=== PATIENT | male | born 1950 | race Caucasian/White ===

== ENCOUNTER 2024-04-17 14:41 | Inpatient (IN) | payer OTHER ==
[~2024-04-17] VITALS: Ht 182.9 cm; Wt 111.5 kg
[2024-04-17 16:43] LABS: Basophils # (auto) 0 10 ^3/uL (0-0.2); Basophils % (auto) 0.5 % (0.0-2.0); Eosinophils # (auto) 0 10 ^3/uL (0-0.8); Eosinophils % (auto) 0.5 % (0.0-7.0); Hematocrit 35.7 % (41.0-53.0); Hemoglobin 11.5 g/dL (13.5-17.5); Lymphocytes # (auto) 1.2 10 ^3/uL (0.4-5.4); Lymphocytes % (auto) 13.4 % (10.0-50.0); Mean Corpuscular Hemoglobin 27.4 pg (28.0-32.0); Mean Corpuscular Hgb Conc. 32.3 g/dL (32.0-36.0); Mean Corpuscular Volume 84.7 fL (80.0-100.0); Monocytes # (auto) 0.7 10 ^3/uL (0-1.3); Monocytes % (auto) 8.1 % (0.0-12.0); Neutrophils # (auto) 6.8 10 ^3/uL (1.6-8.6); Neutrophils % (auto) 77.5 % (37.0-80.0); Nucleated Red Blood Cells % 0.1 %; Red Blood Cells 4.21 10^6/uL (4.5-5.90); Red Cell Distribution Width 19.3 % (11.8-14.3); White Blood Cell 8.7 10^3/uL (4.4-10.8)
[2024-04-17 16:45] LABS: Base Excess 12.3 mmol/L (-2.0-2.0)
[2024-04-17 17:27] LABS: Alanine Aminotransferase 21 U/L (7-40); Alkaline Phosphatase 68 U/L (46-116)
[2024-04-17 17:28] LABS: Albumin 4.2 g/dL (3.2-4.8); Anion Gap 12 (5-15); Aspartate Aminotransferase 30 U/L (13-40); BUN/Creatinine Ratio 23.8 (10.0-20.0); Bilirubin, Total 0.9 mg/dL (0.2-1.0); Blood Urea Nitrogen 29 mg/dL (9-23); Calcium 9.9 mg/dL (8.5-10.1); Carbon Dioxide 30 mmol/L (20-30); Chloride 95 mmol/L (98-107); Glucose 115 mg/dL (74-106); Potassium 4.5 mmol/L (3.5-5.1); Sodium 137 mmol/L (136-145); Total Protein 6.8 g/dL (5.7-8.2)
[2024-04-17] MEDS: FUROSEMIDE 40 MG/4 ML VIAL IV ONE (17:34)
[2024-04-17 17:51] LABS: COVID19 ANTIGEN SOFIA FIA NEGATIVE (NEGATIVE)
[2024-04-17] MEDS ORDERED: MORPHINE SULFATE INJ 2 MG/ml SYRG IV PRN (18:45)
[2024-04-17] MEDS ORDERED: NITROGLYCERIN 0.4 MG SL TAB SL PRN (18:45)
[2024-04-17 18:58] VITALS: BP 127/72; PULSE 85; O2SAT 95
[2024-04-17] MEDS: cefTRIAXone 1GM/50ML D5W 50 ML IV ONE (19:08)
[2024-04-17 19:11] LABS: Base Excess 9.1 mmol/L (-2.0-2.0)
[2024-04-17 19:30] VITALS: PULSE 77; RESP 20; O2SAT 92
[2024-04-17 19:37] VITALS: BP 116/73; PULSE 83; RESP 17; TEMP 98.7; O2SAT 97
[2024-04-17] MEDS: ALBUTEROL SULF 2.5 MG/0.5ML(0.5%) NEB SOLN NEB ONE (19:39)
[2024-04-17] MEDS: IPRATROPIUM BROM 0.5 MG/2.5ML INH SOL NEB ONE (19:39)
[2024-04-17] MEDS: AZITHROMYCIN 500MG/ 250ML 250 ML IV ONE (19:45)
[2024-04-17 20:08] VITALS: BP 127/66; PULSE 84; O2SAT 96
[2024-04-17 21:06] LABS: INR 1.34 (0.9-1.15); Prothrombin Time 13.9 sec (9.3-11.8)
[2024-04-17] MEDS: ATORVASTATIN 20 MG TAB PO SCH (22:08)
[2024-04-17] MEDS: FUROSEMIDE 20 MG/2 ML VIAL IV SCH (22:08)
[2024-04-17] MEDS: ENOXAPARIN SOD 100 MG/1 ML SYRINGE SC SCH (22:09)
[2024-04-17 22:26] VITALS: BP 103/61; PULSE 111; O2SAT 99
[2024-04-17] MEDS: IPRATROPIUM BROM 0.5 MG/2.5ML INH SOL NEB SCH (22:26)
[2024-04-17] MEDS: ALBUTEROL SULF 2.5 MG/0.5ML(0.5%) NEB SOLN NEB SCH (22:26)
[2024-04-17 22:44] LABS: Urine Bacteria None Seen /hpf (None Seen)
[2024-04-17 23:00] LABS: Urine Blood Negative /uL (Negative); Urine Clarity Clear (Clear); Urine Color Yellow (Yellow); Urine Hyaline Cast MANY /lpf (0 - 2); Urine Mucus FEW (None Seen); Urine Protein, UAD Negative (Negative); Urine Specific Gravity 1.015 (1.001-1.035); Urine Urobilinogen Normal (Negative); Urine WBC 4 /hpf (0 - 3)
[2024-04-17 23:09] VITALS: BP 130/68; PULSE 82; O2SAT 90
[2024-04-18] VITALS (16 sets, daily range): BP systolic 108–119; BP diastolic 49–68; PULSE 73–100; RESP 14–20; O2SAT 89–96
[2024-04-18 05:40] LABS: Basophils # (auto) 0 10 ^3/uL (0-0.2); Basophils % (auto) 0.5 % (0.0-2.0); Eosinophils # (auto) 0.2 10 ^3/uL (0-0.8); Hematocrit 34.7 % (41.0-53.0); Hemoglobin 11.1 g/dL (13.5-17.5); Lymphocytes # (auto) 1.8 10 ^3/uL (0.4-5.4); Lymphocytes % (auto) 24.3 % (10.0-50.0); Mean Corpuscular Hemoglobin 27.3 pg (28.0-32.0); Mean Corpuscular Volume 85.2 fL (80.0-100.0); Monocytes # (auto) 0.8 10 ^3/uL (0-1.3); Monocytes % (auto) 10.1 % (0.0-12.0); Neutrophils # (auto) 4.7 10 ^3/uL (1.6-8.6); Neutrophils % (auto) 63.1 % (37.0-80.0); Nucleated Red Blood Cells % 0.1 %; Red Blood Cells 4.07 10^6/uL (4.5-5.90); Red Cell Distribution Width 19.3 % (11.8-14.3); White Blood Cell 7.5 10^3/uL (4.4-10.8)
[2024-04-18 05:50] LABS: Alanine Aminotransferase 15 U/L (7-40); Albumin 3.9 g/dL (3.2-4.8); Alkaline Phosphatase 59 U/L (46-116); Anion Gap 9 (5-15); Aspartate Aminotransferase 22 U/L (13-40); BUN/Creatinine Ratio 20.2 (10.0-20.0); Blood Urea Nitrogen 24 mg/dL (9-23); Carbon Dioxide 35 mmol/L (20-30); Chloride 94 mmol/L (98-107); Glucose 99 mg/dL (74-106); Potassium 4.3 mmol/L (3.5-5.1); Sodium 138 mmol/L (136-145)
[2024-04-18 05:51] LABS: Bilirubin, Total 0.9 mg/dL (0.2-1.0); Total Protein 6.7 g/dL (5.7-8.2)
[2024-04-18] MEDS: cefTRIAXone 1GM/50ML D5W 50 ML IV SCH (09:21)
[2024-04-18 09:37] LABS: Base Excess 8.7 mmol/L (-2.0-2.0)
[2024-04-18] MEDS: AZITHROMYCIN 500MG/ 250ML 250 ML IV SCH (10:20)
[2024-04-18] MEDS: FUROSEMIDE INJECTION 100 MG in D5W 5% 100 ML IV SCH (10:21)
[2024-04-18] MEDS: ASPirin 81 mg TAB PO SCH (10:21)
[2024-04-18] MEDS: levoFLOXacin 750MG 150 ML IV ONE (13:15)
[2024-04-18 13:51] LABS: Amphetamine Screen, Urine Neg (NEGATIVE); Barbiturate Scree,Urine Neg (NEGATIVE); Benzodiazephine Screen, Urine Neg (NEGATIVE); Cannabinoid Screen, Urine Neg (NEGATIVE); Cocaine Screen, Urine Neg (NEGATIVE); Opiate Scree,Urine Neg (NEGATIVE); Phencyclidine Screen, Urine Neg (NEGATIVE)
[2024-04-18] MEDS ORDERED: FUROSEMIDE 20 MG/2 ML VIAL IV ONE (15:00)
[2024-04-18] MEDS ORDERED: DEXTROSE (50%) 50ML SYRG IV PRN (18:15)
[2024-04-18] MEDS: FUROSEMIDE 40 MG/4 ML VIAL IV ONE (19:44)
[2024-04-18] MEDS: ACCU-CHEK COMFORT CURVE STRIP VI SCH (21:35)
[2024-04-18 21:40] LABS: Rapid Influenza A Negative (Negative); Rapid Influenza B Negative (Negative)
[2024-04-18] MEDS: InsuLIN REG 1unit/0.01ml Soln (100units/ml) SC SCH (21:44)
[2024-04-19] VITALS (11 sets, daily range): BP systolic 124–130; BP diastolic 63–65; PULSE 88–106; RESP 13–24; O2SAT 86–96
[2024-04-19 03:50] LABS: Basophils # (auto) 0 10 ^3/uL (0-0.2); Basophils % (auto) 0.5 % (0.0-2.0); Eosinophils # (auto) 0.2 10 ^3/uL (0-0.8); Hemoglobin 11.2 g/dL (13.5-17.5); Lymphocytes # (auto) 1.4 10 ^3/uL (0.4-5.4); Lymphocytes % (auto) 18.8 % (10.0-50.0); Mean Corpuscular Hemoglobin 27.1 pg (28.0-32.0); Mean Corpuscular Hgb Conc. 31.9 g/dL (32.0-36.0); Monocytes # (auto) 0.8 10 ^3/uL (0-1.3); Monocytes % (auto) 9.9 % (0.0-12.0); Neutrophils # (auto) 5.3 10 ^3/uL (1.6-8.6); Neutrophils % (auto) 68.8 % (37.0-80.0); Nucleated Red Blood Cells % 0.1 %; Red Blood Cells 4.12 10^6/uL (4.5-5.90); Red Cell Distribution Width 19.4 % (11.8-14.3); White Blood Cell 7.6 10^3/uL (4.4-10.8)
[2024-04-19 04:11] LABS: Alanine Aminotransferase 13 U/L (7-40); Alkaline Phosphatase 58 U/L (46-116); Anion Gap 5 (5-15); Aspartate Aminotransferase 20 U/L (13-40); BUN/Creatinine Ratio 17.6 (10.0-20.0); Blood Urea Nitrogen 19 mg/dL (9-23); Calcium 9.8 mg/dL (8.7-10.4); Carbon Dioxide 37 mmol/L (20-30); Chloride 97 mmol/L (98-107); Glucose 154 mg/dL (74-106); Magnesium 2.2 mg/dL (1.6-2.6); Potassium 3.7 mmol/L (3.5-5.1); Sodium 139 mmol/L (136-145)
[2024-04-19 04:12] LABS: Albumin 3.8 g/dL (3.2-4.8)
[2024-04-19 04:13] LABS: Bilirubin, Total 0.8 mg/dL (0.2-1.0); Total Protein 6.7 g/dL (5.7-8.2)
[2024-04-19] MEDS: FUROSEMIDE 40 MG/4 ML VIAL IV SCH (06:28)
[2024-04-19 09:30] LABS: Base Excess 8.1 mmol/L (-2.0-2.0)
[2024-04-19] MEDS ORDERED: FUROSEMIDE 20 MG/2 ML VIAL IV SCH (10:00)
[2024-04-19] MEDS: levoFLOXacin 750MG 150 ML IV SCH (10:35)
[2024-04-19] MEDS: ENOXAPARIN SOD 120 MG/0.8 ML SYRINGE SC SCH (21:58)
[2024-04-20] VITALS (22 sets, daily range): BP systolic 96–159; BP diastolic 54–91; PULSE 87–108; RESP 13–30; TEMP 98.1–99.4; O2SAT 79–96
[2024-04-20 04:33] LABS: Basophils # (auto) 0 10 ^3/uL (0-0.2); Basophils % (auto) 0.4 % (0.0-2.0); Eosinophils # (auto) 0 10 ^3/uL (0-0.8); Eosinophils % (auto) 0.3 % (0.0-7.0); Hematocrit 35.4 % (41.0-53.0); Hemoglobin 11.5 g/dL (13.5-17.5); Lymphocytes # (auto) 0.9 10 ^3/uL (0.4-5.4); Lymphocytes % (auto) 8.6 % (10.0-50.0); Mean Corpuscular Hemoglobin 27.7 pg (28.0-32.0); Mean Corpuscular Hgb Conc. 32.6 g/dL (32.0-36.0); Mean Corpuscular Volume 85.2 fL (80.0-100.0); Monocytes # (auto) 0.9 10 ^3/uL (0-1.3); Monocytes % (auto) 8.8 % (0.0-12.0); Neutrophils # (auto) 8.3 10 ^3/uL (1.6-8.6); Neutrophils % (auto) 81.9 % (37.0-80.0); Red Blood Cells 4.15 10^6/uL (4.5-5.90); Red Cell Distribution Width 19.2 % (11.8-14.3); White Blood Cell 10.2 10^3/uL (4.4-10.8)
[2024-04-20 04:47] LABS: Alanine Aminotransferase 15 U/L (7-40); Albumin 4.2 g/dL (3.2-4.8); Alkaline Phosphatase 67 U/L (46-116); Anion Gap 11 (5-15); Aspartate Aminotransferase 25 U/L (13-40); BUN/Creatinine Ratio 15.4 (10.0-20.0); Blood Urea Nitrogen 16 mg/dL (9-23); Calcium 10.2 mg/dL (8.5-10.1); Carbon Dioxide 32 mmol/L (20-30); Chloride 94 mmol/L (98-107); Glucose 196 mg/dL (74-106); Magnesium 2.1 mg/dL (1.6-2.6); Potassium 3.7 mmol/L (3.5-5.1); Sodium 137 mmol/L (136-145)
[2024-04-20 04:48] LABS: Bilirubin, Total 1.2 mg/dL (0.2-1.0); Total Protein 7.3 g/dL (5.7-8.2)
[2024-04-20] MEDS: FUROSEMIDE 100 MG/10ML VIAL IV SCH (09:00)
[2024-04-20 11:59] LABS: Base Excess 6.8 mmol/L (-2.0-2.0)
[2024-04-20] MEDS: SENNA 8.6 MG TAB PO PRN (22:25)
[2024-04-20] MEDS: HYDROCORTISONE SOD SUCC 100 MG/2ML INJ VIAL IV ONE (22:26)
[2024-04-21] VITALS (27 sets, daily range): BP systolic 103–139; BP diastolic 61–78; PULSE 85–101; RESP 17–30; TEMP 97–99.3; O2SAT 88–100
[2024-04-21] MEDS: HYDROCORTISONE SOD SUCC 100 MG/2ML INJ VIAL IV SCH
[2024-04-21] MEDS ORDERED: AMLO1TAB22 PO (01:22)
[2024-04-21] MEDS ORDERED: ASPI325T6 PO (04:06)
[2024-04-21] MEDS ORDERED: GABA-1308 PO (04:06)
[2024-04-21] MEDS ORDERED: ASPI-543 PO (04:06)
[2024-04-21] MEDS ORDERED: ASPI81CH74 PO (04:06)
[2024-04-21] MEDS ORDERED: ALPHTAB PO (04:34)
[2024-04-21] MEDS ORDERED: EMPA1TAB3 PO (04:34)
[2024-04-21] MEDS ORDERED: ATOR80TA PO (04:34)
[2024-04-21] MEDS ORDERED: LIRA18IN2 SC (04:34)
[2024-04-21] MEDS ORDERED: INS7030I SC (04:34)
[2024-04-21] MEDS ORDERED: METF-929 PO (04:34)
[2024-04-21] MEDS ORDERED: FURO1TAB31 PO (04:34)
[2024-04-21] MEDS ORDERED: LOSA-534 PO (04:34)
[2024-04-21] MEDS ORDERED: METO25TA5 PO (04:34)
[2024-04-21] MEDS ORDERED: DABI150C5 PO (04:34)
[2024-04-21] MEDS ORDERED: ZINC50TA7 PO (04:48)
[2024-04-21] MEDS ORDERED: SENN-58 PO (04:48)
[2024-04-21] MEDS ORDERED: MULTCHW OR (04:48)
[2024-04-21] MEDS ORDERED: MAGN100C5 PO (04:48)
[2024-04-21] MEDS ORDERED: CALCCHW53 OR (04:48)
[2024-04-21] MEDS ORDERED: CHOL500046 PO (04:48)
[2024-04-21] MEDS ORDERED: ALPH200C3 PO (04:48)
[2024-04-21 06:47] LABS: Basophils # (auto) 0 10 ^3/uL (0-0.2); Basophils % (auto) 0.5 % (0.0-2.0); Eosinophils # (auto) 0.1 10 ^3/uL (0-0.8); Eosinophils % (auto) 1.1 % (0.0-7.0); Hematocrit 33.9 % (41.0-53.0); Lymphocytes # (auto) 0.9 10 ^3/uL (0.4-5.4); Lymphocytes % (auto) 15.3 % (10.0-50.0); Mean Corpuscular Hemoglobin 27.6 pg (28.0-32.0); Mean Corpuscular Hgb Conc. 32.5 g/dL (32.0-36.0); Mean Corpuscular Volume 84.8 fL (80.0-100.0); Monocytes # (auto) 0.4 10 ^3/uL (0-1.3); Monocytes % (auto) 7.4 % (0.0-12.0); Neutrophils # (auto) 4.5 10 ^3/uL (1.6-8.6); Neutrophils % (auto) 75.7 % (37.0-80.0); Red Cell Distribution Width 19.6 % (11.8-14.3); White Blood Cell 5.9 10^3/uL (4.4-10.8)
[2024-04-21 07:00] LABS: Alanine Aminotransferase 10 U/L (7-40); Alkaline Phosphatase 59 U/L (46-116); Anion Gap 5 (5-15); Blood Urea Nitrogen 16 mg/dL (9-23); Calcium 9.9 mg/dL (8.5-10.1); Carbon Dioxide 36 mmol/L (20-30); Chloride 97 mmol/L (98-107); Glucose 185 mg/dL (74-106); Magnesium 2.1 mg/dL (1.6-2.6); Sodium 138 mmol/L (136-145)
[2024-04-21 07:01] LABS: Albumin 3.8 g/dL (3.2-4.8); Aspartate Aminotransferase 20 U/L (13-40); Phosphorus 3.2 mg/dL (2.4-5.1)
[2024-04-21 07:02] LABS: Bilirubin, Total 0.9 mg/dL (0.2-1.0); Total Protein 6.6 g/dL (5.7-8.2)
[2024-04-21] MEDS: FUROSEMIDE 20 MG/2 ML VIAL IV ONE (09:47)
[2024-04-21 11:49] LABS: Base Excess 10.3 mmol/L (-2.0-2.0)
[2024-04-21] MEDS: FUROSEMIDE 100 MG/10ML VIAL IV SCH (17:53)
[2024-04-22] VITALS (39 sets, daily range): BP systolic 118–143; BP diastolic 49–82; PULSE 68–104; RESP 14–28; TEMP 96.9–98.9; O2SAT 89–100
[2024-04-22 05:02] LABS: Basophils # (auto) 0 10 ^3/uL (0-0.2); Basophils % (auto) 0.2 % (0.0-2.0); Eosinophils # (auto) 0 10 ^3/uL (0-0.8); Eosinophils % (auto) 0.1 % (0.0-7.0); Hematocrit 34.1 % (41.0-53.0); Hemoglobin 10.9 g/dL (13.5-17.5); Lymphocytes # (auto) 0.7 10 ^3/uL (0.4-5.4); Lymphocytes % (auto) 11.5 % (10.0-50.0); Mean Corpuscular Hemoglobin 27.1 pg (28.0-32.0); Mean Corpuscular Hgb Conc. 32.1 g/dL (32.0-36.0); Mean Corpuscular Volume 84.2 fL (80.0-100.0); Monocytes # (auto) 0.4 10 ^3/uL (0-1.3); Monocytes % (auto) 6.6 % (0.0-12.0); Neutrophils # (auto) 5.2 10 ^3/uL (1.6-8.6); Neutrophils % (auto) 81.6 % (37.0-80.0); Nucleated Red Blood Cells % 0.1 %; Red Blood Cells 4.05 10^6/uL (4.5-5.90); Red Cell Distribution Width 20.1 % (11.8-14.3); White Blood Cell 6.3 10^3/uL (4.4-10.8)
[2024-04-22 05:28] LABS: Alanine Aminotransferase 12 U/L (7-40); Albumin 3.7 g/dL (3.2-4.8); Alkaline Phosphatase 55 U/L (46-116); Anion Gap 6 (5-15); Aspartate Aminotransferase 16 U/L (13-40); BUN/Creatinine Ratio 19.6 (10.0-20.0); Blood Urea Nitrogen 21 mg/dL (9-23); Calcium 9.8 mg/dL (8.7-10.4); Carbon Dioxide 37 mmol/L (20-30); Chloride 97 mmol/L (98-107); Glucose 221 mg/dL (74-106); Magnesium 2.1 mg/dL (1.6-2.6); Potassium 3.5 mmol/L (3.5-5.1); Sodium 140 mmol/L (136-145)
[2024-04-22 05:29] LABS: Bilirubin, Total 0.7 mg/dL (0.2-1.0); Total Protein 6.4 g/dL (5.7-8.2)
[2024-04-22 06:32] LABS: Base Excess 11.5 mmol/L (-2.0-2.0)
[2024-04-23] VITALS (38 sets, daily range): BP systolic 114–150; BP diastolic 59–82; PULSE 62–106; RESP 13–25; TEMP 97.7–98.7; O2SAT 90–99
[2024-04-23 05:04] LABS: Basophils # (auto) 0 10 ^3/uL (0-0.2); Basophils % (auto) 0.2 % (0.0-2.0); Eosinophils # (auto) 0 10 ^3/uL (0-0.8); Eosinophils % (auto) 0.1 % (0.0-7.0); Hemoglobin 10.8 g/dL (13.5-17.5); Lymphocytes # (auto) 0.6 10 ^3/uL (0.4-5.4); Lymphocytes % (auto) 10.1 % (10.0-50.0); Mean Corpuscular Hemoglobin 27.6 pg (28.0-32.0); Mean Corpuscular Hgb Conc. 32.8 g/dL (32.0-36.0); Mean Corpuscular Volume 84.4 fL (80.0-100.0); Monocytes # (auto) 0.3 10 ^3/uL (0-1.3); Neutrophils # (auto) 4.8 10 ^3/uL (1.6-8.6); Neutrophils % (auto) 83.6 % (37.0-80.0); Nucleated Red Blood Cells % 0.1 %; Red Blood Cells 3.91 10^6/uL (4.5-5.90); Red Cell Distribution Width 19.8 % (11.8-14.3); White Blood Cell 5.8 10^3/uL (4.4-10.8)
[2024-04-23 05:16] LABS: Alanine Aminotransferase 11 U/L (7-40); Albumin 3.5 g/dL (3.2-4.8); Alkaline Phosphatase 49 U/L (46-116); Anion Gap 5 (5-15); Aspartate Aminotransferase 11 U/L (13-40); Blood Urea Nitrogen 21 mg/dL (9-23); Calcium 9.8 mg/dL (8.7-10.4); Carbon Dioxide 38 mmol/L (20-30); Chloride 96 mmol/L (98-107); Glucose 265 mg/dL (74-106); Magnesium 2.1 mg/dL (1.6-2.6); Phosphorus 3.2 mg/dL (2.4-5.1); Potassium 3.3 mmol/L (3.5-5.1); Sodium 139 mmol/L (136-145)
[2024-04-23 05:17] LABS: Bilirubin, Total 0.5 mg/dL (0.2-1.0); Total Protein 6.2 g/dL (5.7-8.2)
[2024-04-23] MEDS: POTASSIUM EFFERVESENT TAB 25 MEQ PO ONE (10:19)
[2024-04-23] MEDS: HYDROCORTISONE SOD SUCC 100 MG/2ML INJ VIAL IV SCH (14:24)
[2024-04-23] MEDS: ENOXAPARIN SOD 120 MG/0.8 ML SYRINGE SC SCH (21:36)
[2024-04-23] MEDS ORDERED: DEXTROSE (50%) 50ML SYRG IV PRN ×2 (22:30)
[2024-04-24] VITALS (33 sets, daily range): BP systolic 102–151; BP diastolic 49–85; PULSE 70–108; RESP 16–28; TEMP 97.7–99.3; O2SAT 90–99
[2024-04-24] MEDS: ACCU-CHEK COMFORT CURVE STRIP VI SCH ×2 (00:26→05:41)
[2024-04-24] MEDS: InsuLIN REG 1unit/0.01ml Soln (100units/ml) SC SCH ×2 (05:40)
[2024-04-24] MEDS: INSULIN LANTUS (GLARGINE) 1 /0.01ml (100units/ml) SC ONE (10:28)
[2024-04-24 11:19] LABS: Basophils # (auto) 0 10 ^3/uL (0-0.2); Basophils % (auto) 0.2 % (0.0-2.0); Eosinophils # (auto) 0 10 ^3/uL (0-0.8); Eosinophils % (auto) 0.3 % (0.0-7.0); Hematocrit 35.9 % (41.0-53.0); Hemoglobin 11.4 g/dL (13.5-17.5); Lymphocytes # (auto) 0.8 10 ^3/uL (0.4-5.4); Lymphocytes % (auto) 12.2 % (10.0-50.0); Mean Corpuscular Hgb Conc. 31.6 g/dL (32.0-36.0); Mean Corpuscular Volume 85.4 fL (80.0-100.0); Monocytes # (auto) 0.4 10 ^3/uL (0-1.3); Monocytes % (auto) 7.2 % (0.0-12.0); Neutrophils % (auto) 80.1 % (37.0-80.0); Nucleated Red Blood Cells % 0.1 %; Red Blood Cells 4.21 10^6/uL (4.5-5.90); Red Cell Distribution Width 19.7 % (11.8-14.3); White Blood Cell 6.2 10^3/uL (4.4-10.8)
[2024-04-24 11:42] LABS: Chloride 96 mmol/L (98-107); Potassium 3.2 mmol/L (3.5-5.1); Sodium 139 mmol/L (136-145)
[2024-04-24 11:43] LABS: Calcium 9.5 mg/dL (8.7-10.4)
[2024-04-24 11:48] LABS: BUN/Creatinine Ratio 16.2 (10.0-20.0); Blood Urea Nitrogen 16 mg/dL (9-23)
[2024-04-24 11:49] LABS: Magnesium 1.7 mg/dL (1.6-2.6)
[2024-04-24 11:56] LABS: Anion Gap 2.99999 (5-15)
[2024-04-24 11:57] LABS: Carbon Dioxide > 40 mmol/L (20-30); Glucose 401 mg/dL (74-106)
[2024-04-24] MEDS: HYDROCORTISONE SOD SUCC 100 MG/2ML INJ VIAL IV SCH (14:30)
[2024-04-24 16:11] LABS: Base Excess 13.5 mmol/L (-2.0-2.0)
[2024-04-24] MEDS: POTASSIUM EFFERVESENT TAB 25 MEQ PO ONE ×2 (17:42→17:54)
[2024-04-24] MEDS: MAGNESIUM OXIDE 400 MG TAB PO ONE (17:54)
[2024-04-24] MEDS ORDERED: ENOXAPARIN SOD 120 MG/0.8 ML SYRINGE SC SCH (22:00)
[2024-04-24] MEDS ORDERED: InsuLIN REG 1unit/0.01ml Soln (100units/ml) SC SCH (22:00)
[2024-04-25] MEDS ORDERED: INSULIN LANTUS (GLARGINE) 1 /0.01ml (100units/ml) SC SCH (07:00)
== END 2024-04-24 21:45 | disposition short-term general hospital (02) | DRG 871 ==
LOC: EDBD 14:41 → ER 14:41 → TELE 18:57 → DOU IN ICU 04-20 11:16
PROVIDERS: ADMIT Internal Medicine Pulmonary Disease; ATTEND Internal Medicine Pulmonary Disease
PROC: 5A09357 Assistance with Respiratory Ventilation, Less than 24 Consecutive Hours, Continuous Positive Airway Pressure (ICD-10-PCS; principal; 2024-04-17)
PROC: 5A09357 Assistance with Respiratory Ventilation, Less than 24 Consecutive Hours, Continuous Positive Airway Pressure (ICD-10-PCS; 2024-04-19)
PROC: 5A09357 Assistance with Respiratory Ventilation, Less than 24 Consecutive Hours, Continuous Positive Airway Pressure (ICD-10-PCS; 2024-04-20)
PROC: 5A09357 Assistance with Respiratory Ventilation, Less than 24 Consecutive Hours, Continuous Positive Airway Pressure (ICD-10-PCS; 2024-04-21)
PROC: 5A09357 Assistance with Respiratory Ventilation, Less than 24 Consecutive Hours, Continuous Positive Airway Pressure (ICD-10-PCS; 2024-04-22)
DX: A41.9 Sepsis, unspecified organism (principal); I21.A1 Myocardial infarction type 2; J96.22 Acute and chronic respiratory failure with hypercapnia; J96.21 Acute and chronic respiratory failure with hypoxia; I50.23 Acute on chronic systolic (congestive) heart failure; J15.9 Unspecified bacterial pneumonia; J15.69 Pneumonia due to other Gram-negative bacteria; E66.2 Morbid (severe) obesity with alveolar hypoventilation; I11.0 Hypertensive heart disease with heart failure; I48.91 Unspecified atrial fibrillation; J98.6 Disorders of diaphragm; D64.9 Anemia, unspecified; E11.51 Type 2 diabetes mellitus with diabetic peripheral angiopathy without gangrene; E78.5 Hyperlipidemia, unspecified; I25.10 Atherosclerotic heart disease of native coronary artery without angina pectoris; E87.6 Hypokalemia; Z85.528 Personal history of other malignant neoplasm of kidney; Z68.34 Body mass index [BMI] 34.0-34.9, adult; Z79.02 Long term (current) use of antithrombotics/antiplatelets; Z82.49 Family history of ischemic heart disease and other diseases of the circulatory system; Z87.891 Personal history of nicotine dependence; Z95.1 Presence of aortocoronary bypass graft; W18.39XA Other fall on same level, initial encounter; Y93.89 Activity, other specified; Y92.89 Other specified places as the place of occurrence of the external cause; Y99.8 Other external cause status
CPT/HCPCS: 36415; 36600; 71045; 71260; 76604; 80048; 80053; 80307; 81001; 82805; 82962; 83605; 83735; 83880; 84100; 84484; 85025; 85610; 87040; 87081; 87086; 87426; 87804; 93005; 93306; 93971; 94640; 94660; 96365; 96375; 99291; G0378; J1815; J1956; J7060